=== PATIENT | female | born 1960 | race Caucasian/White ===

== ENCOUNTER 2020-08-12 14:11 | Inpatient (IN) | payer MEDICAID, MEDICARE, OTHER ==
[~2020-08-12] VITALS: Ht 167.6 cm; Wt 113.7 kg
[~2020-08-12 14:11] MED LIST: AMLO-489 PO; ATEN50TA PO; BACL20TA PO; CETI1TAB36 PO; ENAL10TA13 PO; HYDR25TA4 PO; TRAM50TA2 PO
[2020-08-12] MEDS ORDERED: SODIUM CHLORIDE 0.9% 1,000 ML IVB ONE (15:45)
[2020-08-12] MEDS ORDERED: SODIUM CHLORIDE 0.9% 1,000 ML IV ONE (15:45)
[2020-08-12 15:46] LABS: Basophils # (auto) 0 10 ^3/uL (0-0.2); Basophils % (auto) 0.4 % (0.0-2.0); Eosinophils # (auto) 0 10 ^3/uL (0-0.8); Eosinophils % (auto) 0.2 % (0.0-7.0); Hematocrit 45.9 % (36.0-46.0); Hemoglobin 15.9 g/dL (12.2-16.2); Lymphocytes # (auto) 0.8 10 ^3/uL (0.4-5.4); Mean Corpuscular Hemoglobin 28.1 pg (28.0-32.0); Mean Corpuscular Hgb Conc. 34.6 g/dL (32.0-36.0); Mean Corpuscular Volume 81.3 fL (80.0-100.0); Monocytes # (auto) 0.1 10 ^3/uL (0-1.3); Monocytes % (auto) 1.1 % (0.0-12.0); Neutrophils # (auto) 10.5 10 ^3/uL (1.6-8.6); Neutrophils % (auto) 91.3 % (37.0-80.0); Nucleated Red Blood Cells % 0.4 %; Platelet Count (auto) 382 10^3/uL (140-450); Red Blood Cells 5.65 10^6/uL (4.0-5.20); Red Cell Distribution Width 13.2 % (11.8-14.3); White Blood Cell 11.5 10^3/uL (4.4-10.8)
[2020-08-12 16:06] LABS: Calcium 9.8 mg/dL (8.5-10.1); Potassium 4.3 mmol/L (3.5-5.1)
[2020-08-12 16:08] LABS: Bilirubin, Total 0.6 mg/dL (0.2-1.0); Total Protein 8.6 g/dL (6.4-8.2)
[2020-08-12 16:14] LABS: Magnesium 2.4 mg/dL (1.6-2.6)
[2020-08-12 17:44] LABS: Urine Bacteria FEW /hpf (None Seen); Urine Blood Negative /uL (Negative); Urine Hyaline Cast FEW /lpf (0 - 2); Urine Specific Gravity 1.009 (1.001-1.035); Urine WBC 1 /hpf (0 - 5)
[2020-08-12] MEDS ORDERED: ENOXAPARIN SOD 60 MG/0.6 ML SYRINGE SC ONE (18:15)
[2020-08-12 19:28] LABS: Partial Thromboplastin Time 25.8 sec (23.0-31.2)
[2020-08-12] MEDS ORDERED: MORPHINE SULF INJ 2 MG/ML SYRINGE 1ML IV PRN (21:15)
[2020-08-12] MEDS ORDERED: NITROGLYCERIN 0.4 MG SL TAB SL PRN (21:15)
[2020-08-12] MEDS ORDERED: DEXTROSE (50%) 50ML SYRG IV PRN ×2 (21:15→22:30)
[2020-08-12] MEDS ORDERED: ACETAMINOPHEN 325 MG TAB PO PRN (21:15)
[2020-08-12] MEDS ORDERED: ONDANSETRON HCL 4 MG/2 ML VIAL IV PRN (21:15)
[2020-08-12] MEDS ORDERED: TEMAZEPAM 15 MG CAP PO PRN (21:15)
[2020-08-12] MEDS ORDERED: cefTRIAXone 1GM/50ML D5W 50 ML IV ONE (21:15)
[2020-08-12] MEDS ORDERED: ACCU-CHEK COMFORT CURVE STRIP VI SCH (22:00)
[2020-08-12] MEDS: InsuLIN REG 1unit/0.01ml Soln (100units/ml) SC SCH ×2 (22:00→22:16)
[2020-08-12] MEDS ORDERED: MONTELUKAST SODIUM 10 MG TAB PO ONE (22:45)
[2020-08-12 23:59] VITALS: BP 170/90
[2020-08-13] MEDS ORDERED: MELO1TAB73 PO (03:42)
[2020-08-13] MEDS ORDERED: GABA-339 PO (03:42)
[2020-08-13] MEDS ORDERED: HYDR-4072 PO (03:42)
[2020-08-13] MEDS ORDERED: FURO1TAB31 PO (03:42)
[2020-08-13] MEDS ORDERED: MONT10TA23 PO (03:42)
[2020-08-13] MEDS ORDERED: GEMF-19 PO (03:42)
[2020-08-13 05:49] VITALS: BP 132/69
[2020-08-13 06:27] LABS: Basophils # (auto) 0.1 10 ^3/uL (0-0.2); Basophils % (auto) 0.8 % (0.0-2.0); Eosinophils # (auto) 0.1 10 ^3/uL (0-0.8); Eosinophils % (auto) 1.1 % (0.0-7.0); Hematocrit 39.8 % (36.0-46.0); Hemoglobin 13.7 g/dL (12.2-16.2); Lymphocytes # (auto) 1.9 10 ^3/uL (0.4-5.4); Lymphocytes % (auto) 19.5 % (10.0-50.0); Mean Corpuscular Hemoglobin 27.6 pg (28.0-32.0); Mean Corpuscular Hgb Conc. 34.4 g/dL (32.0-36.0); Mean Corpuscular Volume 80.4 fL (80.0-100.0); Monocytes # (auto) 1.1 10 ^3/uL (0-1.3); Neutrophils # (auto) 6.7 10 ^3/uL (1.6-8.6); Neutrophils % (auto) 67.6 % (37.0-80.0); Nucleated Red Blood Cells % 0.1 %; Platelet Count (auto) 310 10^3/uL (140-450); Red Blood Cells 4.95 10^6/uL (4.0-5.20); White Blood Cell 9.9 10^3/uL (4.4-10.8)
[2020-08-13 06:44] LABS: BUN/Creatinine Ratio 31.8; Calcium 8.9 mg/dL (8.5-10.1); Potassium 3.8 mmol/L (3.5-5.1)
[2020-08-13] MEDS ORDERED: JANUVIA 100 MG PO SCH (07:00)
[2020-08-13] MEDS ORDERED: ACCU-CHEK COMFORT CURVE STRIP VI SCH (07:00)
[2020-08-13] MEDS ORDERED: cefTRIAXone 1GM/50ML D5W 50 ML IV SCH (09:00)
[2020-08-13 09:12] VITALS: BP 133/71
[2020-08-13] MEDS ORDERED: PANTOPRAZOLE 40 MG TAB PO SCH (10:00)
[2020-08-13 13:00] VITALS: BP 133/68
[2020-08-13 16:58] VITALS: BP 140/68
== END 2020-08-13 18:00 | disposition home or self-care (01) | DRG 315 ==
LOC: ER 14:11 → TELE 21:14 → TELE-WESTW 22:45
PROVIDERS: ADMIT Nurse Practitioner; ATTEND Internal Medicine
DX: I95.9 Hypotension, unspecified (principal); Z68.41 Body mass index [BMI] 40.0-44.9, adult; N39.0 Urinary tract infection, site not specified; R00.1 Bradycardia, unspecified; Z20.822 Contact with and (suspected) exposure to COVID-19; E11.22 Type 2 diabetes mellitus with diabetic chronic kidney disease; E66.01 Morbid (severe) obesity due to excess calories; E78.5 Hyperlipidemia, unspecified; J45.909 Unspecified asthma, uncomplicated; M19.90 Unspecified osteoarthritis, unspecified site; Z90.49 Acquired absence of other specified parts of digestive tract; Z90.89 Acquired absence of other organs; Z79.899 Other long term (current) drug therapy; N18.31 Chronic kidney disease, stage 3a
CPT/HCPCS: 36415; 71046; 78582; 80048; 80053; 81001; 82962; 83735; 84443; 84484; 85025; 85049; 85379; 85610; 85730; 87426; 93005; 93306; 96361; 96365; 96372; G0378; J0696; J1815

== ENCOUNTER 2022-10-14 11:51 | Emergency (ER) | payer OTHER ==
[~2022-10-14] VITALS: Ht 170.2 cm; Wt 122.0 kg
[~2022-10-14 11:51] MED LIST changes: -AMLO-489 PO; -ATEN50TA PO; -ENAL10TA13 PO; +ENAL1TAB47 PO; +GABA-339 PO; +GEMF-66 PO; +HYDR-4072 PO; -HYDR25TA4 PO; +MELO7.5T7 PO; +MONT10TA23 PO
[2022-10-14 12:58] LABS: Basophils # (auto) 0.1 10 ^3/uL (0-0.2); Hemoglobin 14.7 g/dL (12.2-16.2)
[2022-10-14 13:01] LABS: Basophils % (auto) 1.1 % (0.0-2.0); Eosinophils # (auto) 0.4 10 ^3/uL (0-0.8); Eosinophils % (auto) 4.7 % (0.0-7.0); Hematocrit 43.9 % (36.0-46.0); Lymphocytes % (auto) 12.5 % (10.0-50.0); Mean Corpuscular Hemoglobin 26.6 pg (28.0-32.0); Mean Corpuscular Hgb Conc. 33.4 g/dL (32.0-36.0); Mean Corpuscular Volume 79.7 fL (80.0-100.0); Monocytes # (auto) 0.6 10 ^3/uL (0-1.3); Monocytes % (auto) 7.4 % (0.0-12.0); Neutrophils # (auto) 5.7 10 ^3/uL (1.6-8.6); Neutrophils % (auto) 74.3 % (37.0-80.0); Nucleated Red Blood Cells % 0.3 %; White Blood Cell 7.7 10^3/uL (4.4-10.8)
[2022-10-14 13:14] LABS: INR 0.95 (0.9-1.15); Partial Thromboplastin Time 26.2 SEC (24.5-34.5)
[2022-10-14 13:19] LABS: Alanine Aminotransferase 16 U/L (7-40); Albumin 4.5 g/dL (3.2-4.8); Alkaline Phosphatase 106 U/L (46-116); Anion Gap 10.9 (5-15); Aspartate Aminotransferase < 8 U/L (13-40); BUN/Creatinine Ratio 21.5 (10.0-20.0); Bilirubin, Total 0.7 mg/dL (0.2-1.0); Blood Urea Nitrogen 38 mg/dL (9-23); Calcium 9.8 mg/dL (8.5-10.1); Carbon Dioxide 23.1 mmol/L (20-30); Chloride 105 mmol/L (98-107); Glucose 161 mg/dL (74-106); Potassium 4.4 mmol/L (3.5-5.1); Sodium 139 mmol/L (136-145); Total Protein 7.1 g/dL (5.7-8.2)
[2022-10-14 17:47] VITALS: BP 170/76
[2022-10-14 17:55] VITALS: PULSE 84; RESP 16; O2SAT 95
== END 2022-10-14 18:29 | disposition home or self-care (01) ==
LOC: ER 11:51
DX: R53.1 Weakness (principal); R07.89 Other chest pain; I10 Essential (primary) hypertension; E11.9 Type 2 diabetes mellitus without complications; E78.5 Hyperlipidemia, unspecified; J45.909 Unspecified asthma, uncomplicated; Z90.49 Acquired absence of other specified parts of digestive tract; Z90.89 Acquired absence of other organs; Z79.899 Other long term (current) drug therapy
CPT/HCPCS: 36415; 70450; 71045; 72125; 80053; 82962; 83735; 83880; 84484; 85025; 85610; 85730; 93005